=== PATIENT | female | born 1970 | race Caucasian/White ===

== ENCOUNTER 2018-01-21 06:20 | Emergency (ER) | payer SELFPAY ==
[2018-01-21] MEDS ORDERED: SODIUM BICARBONATE 8.4% INJ 50 MEQ/50 ML SYR IV ONE (06:21)
[2018-01-21] MEDS ORDERED: EPINEPHrine HCL (1:10,000) 1 MG/10 ML SYRINGE IV ONE (06:21)
--- NOTE | 2018-01-21 06:49 | PD ---
HPI Chief Complaint: cardiac arrest Time Seen by Provider: 06:30 Travel History International Travel<30 days: No Contact w/Intl Traveler<30days: No Traveled to known affect area: No History of Present Illness HPI 46-year-old female presents to the emergency department from home by EMS transport after son reportedly found her unresponsive on the floor in the bathroom. Unknown downtime. Paramedics report that they were called to the scene and managed patient with resuscitative measures for 20 minutes in the field. Patient was found unresponsive not breathing without a pulse and in asystole by rocket motor tester. CPR initiated IO access was obtained and resuscitative measures performed including IV fluids, Narcan 2 mg, 2 doses of epinephrine via IO and due to blood found in her airway endotracheal intubation was not possible therefore a Combitube was placed with good bilateral breath sounds with ambit assisted ventilations. Patient arrives to the emergency department remaining in asystole. Blood sugar was 267. Patient was assessed on EMS stretcher in asystole without a pulse Combitube in place and breath sounds heard to auscultation bilaterally with assisted ventilations and transferred subsequently to the emergency department stretcher for ongoing resuscitative measures were continued. Please refer to code summary. Patient reportedly was a participant with the local methadone clinic. Gabapentin was found as a prescription medication. No other medications or medical history known. Allergy status unknown. [facility] Past Medical History Narrative Medical Methadone clinic, gabapentin prescription; nursing notes reviewed Social History Tobacco Use: Yes Allergies-Medications Comments Unknown allergies Narrative Medication Reported methadone clinic therapy recipient, gabapentin Review of Systems ROS Limitations: Clinical Condition, Intubated, Unresponsive Physical Exam Exam Limitations: Clinical Condition Narrative GENERAL: Well-developed well-nourished female GCS 3 intubated with Combitube SKIN: Cool and dry. HEAD: Normocephalic. Atraumatic. EYES: No scleral icterus. Pupils round nonreactive to light. No injection or drainage. ENT: Blood around the mouth and Combitube. NECK: Supple, trachea midline. No JVD or lymphadenopathy. CARDIOVASCULAR: No heart sounds to auscultation. Bedside ultrasound identified no cardiac activity. RESPIRATORY: Breath sounds equal bilaterally only with Ambu bag assisted ventilations Via Combitube. GASTROINTESTINAL: Abdomen soft, nondistended. MUSCULOSKELETAL: No cyanosis, or edema. Left proximal tibia with intraosseous access. No palpable femoral radial brachial or carotid pulses without or with compressions. Data Data Last Documented VS Vital Signs Date Time Temp Pulse Resp B/P (MAP) Pulse Ox O2 Delivery O2 Flow Rate FiO2 01/21/18 06:16 15.00 100 MDM Medical Decision Making Medical Screen Exam Complete: Yes Emergency Medical Condition: Yes Medical Record Reviewed: Yes Differential Diagnosis Cardiac arrest, polysubstance ingestion, opiate overdose, seizure, arrhythmia, PE, GI bleed, PA, intracranial bleed Narrative Course Patient transferred from EMS stretcher to ED stretcher ongoing CPR ACLS measures performed patient received additional epinephrine every 3 minutes 3 doses, 1 dose of sodium bicarb 8.4%, IV fluid bolus, an ABG specimen collected. Bedside ultrasound was performed by Dr. Cummings which identified no cardiac activity. Patient was pronounced at 06:27 AM by me. Patient's son has arrived at 7:15 and reports that he has been living with her for approximately 1 month; that they were both participants at local the methadone clinic. Mother had participated in methadone therapy 1 week. Last saw her normal at 8 PM last evening prior to her going to bed. Son attempted to awaken her in her bed at approximately 5:00-yonathan this morning and noticed that she would not respond to him; he shook her several times with no response so he immediately called 911 and was told to take her out of the bed and put her on the floor to perform CPR. Patient states he performed CPR until paramedics arrived. The son states that he does not know how or why this happened. Son reports that she had had no recent complaints. He she has no known medical problems according to the patient's son. He does not know of her having any allergies. Patient does smoke cigarettes. Patient does not drink alcohol reportedly. Patient has a sister who lives locally and he is planning on contacting her. Father and other family members live out of state. Son is aware that she will be sent to the [place] for autopsy. Diagnosis Primary Impression: Cardiopulmonary arrest Additional Impression: Methadone maintenance therapy patient Disposition: 20 [facility] Condition: Radha Cash MD Jan 21, 2018 06:49
== END 2018-01-21 10:43 | disposition expired ==
LOC: NEPC 06:20 → EDBD 06:20 → NEPI 10:43
DX: I46.9 Cardiac arrest, cause unspecified (principal)
CPT/HCPCS: 92950; 99283; J0171